=== PATIENT | female | born 1965 | race Caucasian/White ===

== ENCOUNTER → 2016-09-24 | Outpatient (CLI) | payer OTHER ==
[~2016-09-24] MED LIST: ATEN25TA PO; CETI10 PO; CONTOUR1 XX; GABA300C5 PO; HYDR25TA5 PO; IPRAAER INH; LEVO25TA4 PO; LISI-515 PO; METF500T PO; MUCU400T2 PO; MULTTAB25 PO; NAPR250T PO; PANT40TA3 PO; [UNRECOGNIZED DRUG - CODE]
[2016-09-24 07:32] LABS: AUTOMATED NEUTROPHIL # 1.7 TH/MM3 (1.8-7.7); BASOPHIL % 0.4 % (0.0-2.0); EOSINOPHIL # 0.1 TH/MM3 (0-0.4); EOSINOPHIL % 2.3 % (0.0-4.0); HEMATOCRIT 35.9 % (35.0-46.0); HEMO FLAGS DIFF FINAL; LYMPH % 35.2 % (9.0-44.0); LYMPHOCYTE # 1.1 TH/MM3 (1.0-4.8); MEAN CELL VOLUME 81.3 FL (80.0-100.0); MEAN CORPUSCULAR HEMOGLOBIN 27.4 PG (27.0-34.0); MEAN CORPUSCULAR HGB CONC 33.7 % (32.0-36.0); MONO % 6.6 % (0.0-8.0); NEUT % 55.5 % (16.0-70.0); PLATELET COUNT 120 TH/MM3 (150-450); RED BLOOD COUNT 4.42 MIL/MM3 (4.00-5.30); WHITE BLOOD COUNT 3.1 TH/MM3 (4.0-11.0)
[2016-09-24 07:42] LABS: ALKALINE PHOSPHATASE 77 U/L (45-117); ALT (GPT) 46 U/L (10-53); HDL CHOLESTEROL 48.1 MG/DL (40.0-60.0); TOTAL BILIRUBIN ADULT 0.6 MG/DL (0.2-1.0)
[2016-09-24 07:47] LABS: ANION GAP 8 MEQ/L (5-15); AST (GOT) 47 U/L (15-37); BICARBONATE 27.5 MEQ/L (21.0-32.0); BLOOD UREA NITROGEN 12 MG/DL (7-18); CHLORIDE 106 MEQ/L (98-107); GLOMERULAR FILTRATION RATE 83 ML/MIN (>89); GLUCOSE,FASTING 96 MG/DL (74-99); LDL CHOLESTEROL 90 MG/DL (0-99); POTASSIUM 3.5 MEQ/L (3.5-5.1); SODIUM (NA) 141 MEQ/L (136-145)
[2016-09-24 11:59] LABS: HEMOGLOBIN A1a 0.9 %; HEMOGLOBIN A1b 0.8 %; HEMOGLOBIN Ao 85.6 %; HEMOGLOBIN F 0.8 %; HEMOGLOBIN LA1C 2.1 %; HEMOGLOBIN P3 3.7 %
== END ==
LOC: CLAB 06:42
PROVIDERS: ATTEND Family Medicine
DX: E66.9 Obesity, unspecified (principal); E78.5 Hyperlipidemia, unspecified; I10 Essential (primary) hypertension; E11.9 Type 2 diabetes mellitus without complications; Z72.0 Tobacco use
CPT/HCPCS: 36415; 80053; 80061; 83036; 84443; 85025

== ENCOUNTER → 2016-12-10 | Outpatient (CLI) | payer OTHER ==
[~2016-12-10] MED LIST changes: -MUCU400T2 PO; -[UNRECOGNIZED DRUG - CODE]
== END ==
LOC: CLAB 06:59
PROVIDERS: ATTEND Family Medicine
DX: E03.9 Hypothyroidism, unspecified (principal)
CPT/HCPCS: 36415; 84443

== ENCOUNTER → 2017-03-31 | Outpatient (CLI) | payer OTHER ==
[~2017-03-31] MED LIST changes: +METF1000 PO
[2017-03-31 16:37] LABS: HEMOGLOBIN A1a 1.1 %; HEMOGLOBIN A1b 0.8 %; HEMOGLOBIN F 0.8 %; HEMOGLOBIN LA1C 2.2 %; HEMOGLOBIN P3 3.8 %
== END ==
LOC: CLAB 14:20
PROVIDERS: ATTEND Family Medicine
DX: E11.9 Type 2 diabetes mellitus without complications (principal); E03.9 Hypothyroidism, unspecified
CPT/HCPCS: 36415; 83036; 84443

== ENCOUNTER 2017-07-21 10:44 | Emergency (ER) | payer OTHER ==
[~2017-07-21] VITALS: Ht 167.6 cm; Wt 135.0 kg
[~2017-07-21 10:44] MED LIST changes: -NAPR250T PO; +NAPR250T4 PO
[2017-07-21 10:46] VITALS: BP 157/81; PULSE 97; RESP 30; TEMP 98.1; O2SAT 97
[2017-07-21] MEDS: RESP: ALBUTEROL 2.5 MG/IPRATROPIUM 0.5 MG NEB (SCH) INH ×3 (11:15→11:45)
[2017-07-21] MEDS ORDERED: SODIUM CHLORIDE 0.9% FLUSH 10 ML FLUSH IVF PRN (11:15)
[2017-07-21] MEDS ORDERED: methylPREDNISolone SOD SUCC 125 MG/2 ML VIAL IV PUSH ONE (11:15)
--- NOTE | 2017-07-21 11:37 | RADRPT ---
EXAM DATE/TIME: 07/21/2017 11:14 [place] COMPARISON: CHEST SINGLE AP, February 09, 2014, 17:16. INDICATIONS : Short of breath and coughing x 5 days. MEDICAL HISTORY : None. SURGICAL HISTORY : None. ENCOUNTER: Initial ACUITY: 1 day PAIN SCORE: 0/10 LOCATION: Bilateral chest FINDINGS: PA and lateral views of the chest demonstrate a normal-sized cardiac silhouette. There is no effusion , consolidation, or pneumothorax. The bones and soft tissues demonstrate no acute abnormality. CONCLUSION: No acute cardiopulmonary abnormality is identified. Alex Lira MD on July 21, 2017 at 11:35 Board Certified Radiologist. This report was verified electronically.
[2017-07-21 11:38] VITALS: O2SAT 96
[2017-07-21 12:01] LABS: AUTOMATED NEUTROPHIL # 3.5 TH/MM3 (1.8-7.7); BASOPHIL % 0.2 % (0.0-2.0); EOSINOPHIL % 0.5 % (0.0-4.0); HEMATOCRIT 39.8 % (35.0-46.0); HEMO FLAGS DIFF FINAL; LYMPH % 24.6 % (9.0-44.0); LYMPHOCYTE # 1.3 TH/MM3 (1.0-4.8); MEAN CELL VOLUME 80.9 FL (80.0-100.0); MEAN CORPUSCULAR HEMOGLOBIN 27.5 PG (27.0-34.0); MONO % 9.7 % (0.0-8.0); PLATELET COUNT 128 TH/MM3 (150-450); RED BLOOD COUNT 4.92 MIL/MM3 (4.00-5.30); RED CELL DISTRIBUTION WIDTH 15.5 % (11.6-17.2); WHITE BLOOD COUNT 5.4 TH/MM3 (4.0-11.0)
[2017-07-21 12:23] LABS: ANION GAP 8 MEQ/L (5-15); BICARBONATE 27.2 MEQ/L (21.0-32.0); BLOOD UREA NITROGEN 5 MG/DL (7-18); CHLORIDE 102 MEQ/L (98-107); GLOMERULAR FILTRATION RATE 94 ML/MIN (>89); SODIUM (NA) 137 MEQ/L (136-145)
[2017-07-21 12:25] LABS: ALT (GPT) 30 U/L (10-53); AST (GOT) 24 U/L (15-37)
[2017-07-21 12:26] LABS: ALKALINE PHOSPHATASE 90 U/L (45-117)
[2017-07-21] MEDS ORDERED: POTASSIUM CHLORIDE 10 MEQ CONTROLLED RELEASE TAB PO ONE (13:00)
--- NOTE | 2017-07-21 13:06 | PD ---
HPI Chief Complaint: Respiratory Distress Time Seen by Provider: 11:01 Travel History International Travel<30 days: No Contact w/Intl Traveler<30days: No Traveled to known affect area: No History of Present Illness HPI Patient is a 51-year-old female, with history of COPD, who comes in complaining of cough, congestion, shortness of breath. She says this is been going on for the past week. She denies fever. She denies any chest pain. She says she has been using albuterol on her nebulizer at home without much relief. She has tried [id number] cold medication without relief. She denies any leg swelling or calf pain. PFSH Past Medical History Autoimmune Disease: No Blood Disorders: No Cancer: No Cardiovascular Problems: No Diabetes: Yes Diminished Hearing: No Gastrointestinal Disorders: Yes GERD: No Genitourinary: No Hepatitis: Yes (HEPATITIS C) Hiatal Hernia: No Hypertension: Yes Musculoskeletal: No Neurologic: No Psychiatric: No Reproductive: No Respiratory: Yes (COPD) Ulcer: No ?: Unknown : 2 Para: 2 Past Surgical History Abdominal Surgery: No AICD: No Cardiac Surgery: No Ear Surgery: No Endocrine Surgery: No Eye Surgery: No Genitourinary Surgery: No Gynecologic Surgery: No Oral Surgery: No Pacemaker: No Thoracic Surgery: No Social History Alcohol Use: Yes Tobacco Use: Yes Substance Use: No Allergies-Medications (Allergen,Severity, Reaction): Coded Allergies: No Known Allergies (Unverified , 03/31/17) Reported Meds & Prescriptions Reported Meds & Active Scripts Active Gabapentin 300 Mg Cap 300 Mg PO HS Hydrochlorothiazide 25 Mg Tab 25 Mg PO DAILY Pantoprazole (Pantoprazole Sodium) 40 Mg Tab 40 Mg PO DAILY Atenolol 25 Mg Tab 25 Mg PO DAILY Contour Blood Glucose Test Strip #100 (Blood Glucose Test Strips) Strp 1 Strip XX DIRECTED Metformin (Metformin HCl) 1,000 Mg Tab 1,000 Mg PO DAILY With a meal Metformin (Metformin HCl) 1,000 Mg Tab 1,000 Mg PO BIDPC With meals Levothyroxine (Levothyroxine Sodium) 25 Mcg Tab 25 Mcg PO DAILY Lisinopril 20 Mg Tab 20 Mg PO DAILY Metformin (Metformin HCl) 500 Mg Tab 500 Mg PO DAILY With a meal Reported Combivent Respimat Inh (Ipratropium-Albuterol Inh) 20-100 Snf/Act Aero 1 Puff INH QID Cetirizine (Cetirizine HCl) 10 Mg Tab 10 Mg PO DAILY Naproxen 250 Mg Tab 250 Mg PO DAILY Multi For Her 50+ (Multiple Vitamins W/ Minerals) 1 Tab Tab 1 Tab PO DAILY Review of Systems Except as stated in HPI: all other systems reviewed are Neg General / Constitutional: No: Fever, Chills HENT: No: Headaches, Lightheadedness Cardiovascular: No: Chest Pain or Discomfort Respiratory: Positive: Cough, Shortness of Breath, Wheezing Gastrointestinal: No: Nausea, Vomiting Genitourinary: No: Dysuria Musculoskeletal: No: Myalgias, Edema Skin: No Rash, No Change in Pigmentation Neurologic: No: Weakness, Dizziness Physical Exam Narrative GENERAL: Awake and alert, in no acute distress. SKIN: Focused skin assessment warm/dry. HEAD: Atraumatic. Normocephalic. EYES: Pupils equal and round. No scleral icterus. EOMI. CARDIOVASCULAR: Regular rate and rhythm. No murmur appreciated. RESPIRATORY: No accessory muscle use. Diffuse wheezing throughout both lungs. Breath sounds equal bilaterally. GASTROINTESTINAL: Abdomen soft, non-tender, nondistended. MUSCULOSKELETAL: No obvious deformities. No clubbing. No cyanosis. No edema. NEUROLOGICAL: Awake and alert. No obvious cranial nerve deficits. Motor grossly within normal limits. Normal speech. PSYCHIATRIC: Appropriate mood and affect; insight and judgment normal. Data Data Last Documented VS Vital Signs Date Time Temp Pulse Resp B/P (MAP) Pulse Ox O2 Delivery O2 Flow Rate FiO2 07/21/17 10:46 98.1 97 30 157/81 (106) 97 Room Air Orders Orders Complete Blood Count With Diff (07/21/17 11:05) Comprehensive Metabolic Panel (07/21/17 11:05) Iv Access Insert/Monitor (07/21/17 11:05) Ecg Monitoring (07/21/17 11:05) Oximetry (07/21/17 11:05) Oxygen Administration (07/21/17 11:05) Chest, Pa & Lat (07/21/17 11:05) Sodium Chloride 0.9% Flush (Ns Flush) (07/21/17 11:15) Methylprednisolone So Succ Inj (Solumedr (07/21/17 11:15) Albuterol-Ipratropium Neb (Duoneb Neb) (07/21/17 11:15) Potassium Chloride (Kcl) (07/21/17 13:00) Labs Laboratory Tests Test 07/21/17 11:30 White Blood Count 5.4 TH/MM3 Red Blood Count 4.92 MIL/MM3 Hemoglobin 13.5 GM/DL Hematocrit 39.8 % Mean Corpuscular Volume 80.9 FL Mean Corpuscular Hemoglobin 27.5 PG Mean Corpuscular Hemoglobin Concent 34.0 % Red Cell Distribution Width 15.5 % Platelet Count 128 TH/MM3 Mean Platelet Volume 8.2 FL Neutrophils (%) (Auto) 65.0 % Lymphocytes (%) (Auto) 24.6 % Monocytes (%) (Auto) 9.7 % Eosinophils (%) (Auto) 0.5 % Basophils (%) (Auto) 0.2 % Neutrophils # (Auto) 3.5 TH/MM3 Lymphocytes # (Auto) 1.3 TH/MM3 Monocytes # (Auto) 0.5 TH/MM3 Eosinophils # (Auto) 0.0 TH/MM3 Basophils # (Auto) 0.0 TH/MM3 CBC Comment DIFF FINAL Differential Comment Blood Urea Nitrogen 5 MG/DL Creatinine 0.66 MG/DL Random Glucose 112 MG/DL Total Protein 9.0 GM/DL Albumin 3.4 GM/DL Calcium Level 9.1 MG/DL Alkaline Phosphatase 90 U/L Aspartate Amino Transf (AST/SGOT) 24 U/L Alanine Aminotransferase (ALT/SGPT) 30 U/L Total Bilirubin 1.0 MG/DL Sodium Level 137 MEQ/L Potassium Level 3.0 MEQ/L Chloride Level 102 MEQ/L Carbon Dioxide Level 27.2 MEQ/L Anion Gap 8 MEQ/L Estimat Glomerular Filtration Rate 94 ML/MIN [facility] Medical Decision Making Medical Screen Exam Complete: Yes Emergency Medical Condition: Yes Medical Record Reviewed: Yes Differential Diagnosis COPD exacerbation vs pneumonia vs bronchitis Narrative Course Patient is a 51 year old female who comes in complaining of cough and SOB. Exam shows diffuse wheezing. IV established, labs sent. Labs show a potassium of 3, this was replaced. Chest x-ray performed shows no acute abnormalities. Patient given 3 duo nebs and a dose of Solu-Medrol. She reports feeling better, lungs are now clear on auscultation. Patient will be discharged with prescriptions for prednisone as well as azithromycin. She is advised follow-up with her doctor. Advised to quit smoking. Advised to return to the ED as needed for any worsening symptoms. Diagnosis Primary Impression: Bronchitis Additional Impression: COPD exacerbation Patient Instructions: COPD (Chronic Obstructive Pulmonary Disease) (ED), General Instructions Additional Instructions: Take the prednisone starting tomorrow. Take all of the antibiotic. Use albuterol as needed for shortness of breath. Follow-up with her doctor. Return to the ED as needed for any worsening symptoms. Scripts Prednisone (Prednisone) 50 Mg Tab 50 MG PO DAILY, #4 TAB 0 Refills Prov: Martha Arizmendi MD 07/21/17 Azithromycin (Zithromax Z-Panda) 250 Mg Dspk 250 MG PO DIRECTED for Infection, #1 DSPK 0 Refills 500 MG (2 tabs) day 1, then 1 tab days 2-5. Prov: Martha Arizmendi MD 07/21/17 Disposition: 01 DISCHARGE HOME Condition: Stable Martha Arizmendi MD Jul 21, 2017 13:06
[2017-07-21] MEDS ORDERED: PRED50 PO (13:24)
[2017-07-21] MEDS ORDERED: ZITHTAB PO (13:24)
[2017-07-21 14:01] VITALS: BP 156/71
== END 2017-07-21 14:07 | disposition home or self-care (01) ==
LOC: NEPE 10:44
DX: J40 Bronchitis, not specified as acute or chronic (principal); J44.1 Chronic obstructive pulmonary disease with (acute) exacerbation; E87.6 Hypokalemia; E11.9 Type 2 diabetes mellitus without complications; I10 Essential (primary) hypertension; Z72.0 Tobacco use; Z79.84 Long term (current) use of oral hypoglycemic drugs; Z87.19 Personal history of other diseases of the digestive system; Z86.19 Personal history of other infectious and parasitic diseases
CPT/HCPCS: 71020; 80053; 85025; 94664; 96374; 99284; J2930